=== PATIENT | male | born 1995 | race Caucasian/White ===

== ENCOUNTER 2016-08-01 08:59 | Emergency (ER) | payer BC, OTHER ==
[~2016-08-01] VITALS: Ht 180.3 cm; Wt 92.0 kg
[2016-08-01 09:01] VITALS: TEMP 36.7; Ht 180.3 cm; Wt 92.0 kg
[2016-08-01] MEDS ORDERED: OMEG10007 PO (09:15)
[2016-08-01] MEDS ORDERED: MULT-506 PO (09:15)
--- NOTE | 2016-08-01 09:43 | DIAGNOSTIC IMAGING REPORT ---
LEFT ANKLE MIN 3 VIEWS ROUTINE CLINICAL HISTORY: Left ankle pain s/p fall COMPARISON: None FINDINGS: Alignment of the left ankle is anatomic. There is no fracture. Talar dome is intact. There is marked lateral ankle soft tissue swelling. IMPRESSION: 1. No acute fracture or dislocation of the left ankle. 2. Marked lateral ankle soft tissue swelling. Electronically signed by: Bruno Russell M.D. 08/01/2016 9:41 AM Dictated Date/Time: 08/01/2016 9:41 AM
--- NOTE | 2016-08-01 09:47 | EMERGENCY ROOM VISIT NOTE ---
History First contact with patient: 09:06 Chief Complaint: ANKLE PAIN Stated Complaint: ANKLE PAIN History of Present Illness The patient is a 21 year old male who presents to the Emergency Room via private vehicle with complaints of "ankle pain". The patient states that around 2 AM, he attempted to jump a small fence, and accidentally rolled his left ankle. He states that his left ankle both medially and laterally are in pain, and it is now swollen. He rates the pain as a 1/10. He notes that when he woke up this morning it was much greater. He denies any numbness or tingling in the distal extremity, loss of consciousness, striking his head, chest pain, leg pain. Review of Systems A complete 6-point Review of Systems was discussed with the patient, with pertinent positives and negatives listed in the History of Present Illness. All remaining Review of Systems questions can be considered negative unless otherwise specified. Past Medical/Surgical History No pertinent past medical history. Family History Diabetes, heart disease, high blood pressure. Social History Smoking Status: Never Smoker Social History: Patient lives with friends. Current/Historical Medications Scheduled Fish Oil (Xenia-3), 1 CAP PO DAILY Multivitamin (Multivitamin), 1 TAB PO DAILY Allergies Coded Allergies: No Known Allergies (Unverified , 08/01/16) Physical Exam Vital Signs Date Time Temp Pulse Resp B/P Pulse Ox O2 Delivery O2 Flow Rate FiO2 08/01/16 10:13 90 14 120/72 99 08/01/16 09:01 36.7 102 18 136/78 97 Room Air Physical Exam VITAL SIGNS - Vital signs and nursing notes were reviewed. Patient is afebrile , blood pressure 136/78, tachycardic at a rate of 102 bpm, and is saturating well on room air 97%. GENERAL -21-year-old male appearing his stated age who is in no acute distress. He is sitting in a wheelchair, with his left foot elevated. Communicates well with provider and answers questions appropriately. SKIN - Without rashes. The integument overlying the left lower extremity is unremarkable. HEAD - NC/AT. EXTREMITIES - No clubbing or peripheral cyanosis. No pretibial edema present. He is neurovascularly intact left lower extremity. There is noted for range of motion secondary to pain. There is tenderness upon palpation both at the medial and lateral aspect of the left ankle joint extending into the foot. There is no proximal herrmann tenderness. No knee tenderness. +5/5 strength noted in UE/LE bilaterally. Medical Decision & Procedures ER Provider Diagnostic Interpretation: LEFT ANKLE MIN 3 VIEWS ROUTINE CLINICAL HISTORY: Left ankle pain s/p fall COMPARISON: None FINDINGS: Alignment of the left ankle is anatomic. There is no fracture. Talar dome is intact. There is marked lateral ankle soft tissue swelling. IMPRESSION: 1. No acute fracture or dislocation of the left ankle. 2. Marked lateral ankle soft tissue swelling. Electronically signed by: Bruno Russell M.D. 08/01/2016 9:41 AM Dictated Date/Time: 08/01/2016 9:41 AM LEFT FOOT 3 VIEWS HISTORY: Left foot pain. Left ankle/pain pain s/p fall COMPARISON: None. FINDINGS: There is no fracture or dislocation. Lateral ankle soft tissue swelling. No radiopaque foreign bodies. IMPRESSION: No fractures. Electronically signed by: Cristian Majano M.D. 08/01/2016 9:47 AM Dictated Date/Time: 08/01/2016 9:46 AM Medical Decision Patient was seen and evaluated as above. After obtaining a thorough history and physical examination, radiographs were obtained of the left ankle and foot secondary to subjective and objective examination findings. He declined pain medication. At the time of evaluation his pain was a 1/10. He was given ice packs. Radiograph results as above. I agree with radiologist findings. No fracture noted. Patient likely is expressing a sprain, but he was educated on the potential for a hairline or occult fracture. For this reason he'll be fitted with a gel ankle splint, and instructed to be nonweightbearing with crutches. He was provided crutches and instructed upon use. He is to remain nonweightbearing on the left ankle until either pain free or until he follows up with orthopedics, but I informed him that I would recommend he follows up with orthopedics and he was provided a phone number. He notes that he did follow-up with orthopedic group in the area, and may follow with them instead of the listed number. I informed him that if he is to experience any difficulties he is to return, he was educated on worrisome symptoms which to return, had questions answered prior to discharge and was discharged home in good condition. In the evaluation and treatment of this patient, the following differential diagnoses were considered: Ankle Fracture, Ankle Sprain, Distal Fibula Fracture , Distal Tibia Fracture, Foot Fracture, Maisonneuve Fracture. Impression Primary Impression: Left ankle pain Departure Information Dispostion Home / Self-Care Condition GOOD Referrals No Doctor, Assigned (PCP) Fabrizio Puri D.O. Patient Instructions [facility] Additional Instructions You have been treated in the Emergency Department for a left Ankle injury. For pain control, you can use the following [id number] medicines (if >12 yo): - Regular strength (325mg/tab) Tylenol (acetaminophen) 2 tabs every 4-6 hours as needed. Do not exceed 12 tablets in a 24 hour period. Avoid taking more than 3 grams (3000 mg) of Tylenol per day. This includes any other sources of acetaminophen you may take on a regular basis. - Regular strength (200 mg/tab) Advil (ibuprofen) 1-2 tabs every 4-6 hours as needed. Do not exceed a dose of 3200 mg per day. If this is a recent injury (<24 hrs), ice can be applied to the area of pain for the first 3 days to help decrease pain and inflammation. You have been provided the number for an Orthopaedic Surgeon. You should call this number as soon as possible to establish a follow-up visit from today's Emergency Department visit. (Dr. Puri) Keep the ankle brace/splint in place until cleared by Orthopedics. Use the crutches you have been provided to keep ALL weight off of the ankle until weight bearing is tolerable. Return to the Emergency Department if your current symptoms worsen despite treatment course outlined above, or if you develop any of the following symptoms : intractable pain despite aforementioned treatment course or new onset of numbness or tingling of the foot. Please return to the emergency department with any new/concerning symptoms.
[2016-08-01 10:13] VITALS: BP 120/72; PULSE 90; O2SAT 99
== END 2016-08-01 10:14 | disposition home or self-care (01) ==
LOC: C.EDB 09:00 → C.EDA 10:14
DX: S99.912A Unspecified injury of left ankle, initial encounter (principal); M25.572 Pain in left ankle and joints of left foot; M25.472 Effusion, left ankle; X58.XXXA Exposure to other specified factors, initial encounter